=== PATIENT | female | born 1990 | race Hispanic/Latino ===

== ENCOUNTER 2021-01-01 04:18 | Inpatient (IN) | payer OTHER ==
[2021-01-01] MEDS ORDERED: BUTORPHANOL 1 MG/ML INJ IV PRN (04:35)
[2021-01-01] MEDS ORDERED: Ringers Lactate 1,000 ML IV PRN (04:35)
[2021-01-01] MEDS ORDERED: PROMETHAZINE INJ 25 MG/ML AMP IM PRN (04:35)
[2021-01-01] MEDS ORDERED: CARBOPROST TROME 250 MCG/ML IM PRN (04:35)
[2021-01-01] MEDS ORDERED: METHYLERGONOVINE 0.2MG/ML AMP IM PRN (04:35)
[2021-01-01] MEDS ORDERED: OXYTOCIN/LR 20 UNIT/1,000 ML BAG IV SCH ×2 (05:00→12:00)
[2021-01-01] MEDS ORDERED: Ringers Lactate 1,000 ML IV SCH (05:00)
[2021-01-01] MEDS ORDERED: OXYTOCIN 10 UNIT/ML ML IV ONE (05:40)
[2021-01-01 05:46] LABS: Absolute Lymphocytes (CBC) 3.1 K/uL (0.7-4.9); Basophils % 0.8 % (0-1.3); Hematocrit 30.4 % (36.0-45.0); MPV 7.9 fL (7.6-11.3); RBC Red Blood Cell Count 3.68 M/uL (3.86-4.86)
[2021-01-01 05:48] LABS: Urine Appearance CLEAR (Clear); Urine Bilirubin NEGATIVE (Negative); Urine Blood NEGATIVE (Negative); Urine Color YELLOW (Yellow); Urine Glucose NEGATIVE (Negative); Urine Protein TRACE (Negative); Urine Specific Gravity >=1.030 (1.005-1.030)
[2021-01-01 05:57] LABS: Urine Microscopic Reflex ORDER UMIC
[2021-01-01 06:11] LABS: Urine Bacteria 20-50 /HPF (<20); Urine RBC <5 /HPF (NONE SEEN)
[2021-01-01 06:12] VITALS: BMI 31.2
[2021-01-01] MEDS ORDERED: BUPIVACAINE 0.25% PF 10 ML VIAL IJ PRN (08:52)
[2021-01-01] MEDS ORDERED: ROPIVACAINE HCL 0.2% 20ML AMP EP ONE (08:52)
[2021-01-01] MEDS ORDERED: FENTANYL CITR 100 MCG/2 ML IV ONE (08:52)
[2021-01-01] MEDS ORDERED: ROPIVACAINE HCL 100 ML EP ONE (09:48)
[2021-01-01] MEDS ORDERED: LIDOCAINE 1% MPF 30 ML VIAL ONE (10:24)
[2021-01-01] MEDS ORDERED: BISACODYL 10 MG RECTAL SUPP PR PRN (11:07)
[2021-01-01] MEDS ORDERED: ACETAMINOPHEN 500 MG TAB PO PRN (11:07)
[2021-01-01] MEDS ORDERED: Oxycodone HCl/Acetaminophen 1 TAB TAB PO PRN ×2 (11:07)
[2021-01-01] MEDS ORDERED: DOCUSATE NA/SENNA CONC 1 TAB PO PRN (11:07)
[2021-01-01] MEDS ORDERED: IBUPROFEN 200 MG TAB PO PRN (11:07)
[2021-01-01] MEDS ORDERED: DIPHENHYDRAMINE 25 MG TAB/CAP PO PRN (11:07)
--- NOTE | 2021-01-01 15:41 | OP ---
Surgeon: Loco Brink MD Procedure In Detail: Camelia Desai is a 30-year-old, 3, para 2, 39 weeks 2 days, came in f or labor induction. Approximately 3 cm on admission. Rupture of membranes this morning, clear fluid . The patient received Stadol 1 mg IV, Phenergan 25 mg IM at approximately 4-5 cm requested and rece ived epidural anesthesia, which gave excellent effect during remainder of labor and delivery. Second stage of about 15 to 20 minutes. Spontaneous vaginal delivery of 6 pounds 11 ounces female, Apgars 9 and 10. No episiotomy. No lacerations. Baby had a harness type cord, not completely around the n linda and very loose. Estimated blood loss 200 mL or less. The patient is Rh positive. Immune to Rub jessica. COVID status pending. Strep was negative. Tolerated all procedures well. Final Diagnoses: Term intrauterine at 39 weeks and 2 days, labor induction, vaginal delive ry, epidural anesthesia. BORIS/FAB Voice ID: [id number] Report ID: [id number]
[2021-01-02 01:10] LABS: RPR (Rapid Plasma Reagin) NON-REACT (NON-REACT)
--- NOTE | 2021-01-02 07:51 | DS ---
Hospital Course: A 30-year-old 3, para 2, 39 weeks 2 days, delivered of 6 pounds 11 ounces f emale, Apgars 9 and 10. No episiotomy. No lacerations. Epidural anesthesia, which gave excellent b enefit. Schultze delivery of the placenta, which inspected and noted to be intact and normal, 200 cc or less blood loss. The patient is Rh positive, immune to Rubella. Negative strep screen. She has had her Tdap immunization. Does not want COVID or flu shots. She has no questions or problems this morning. Dismissed. Return to my office in 6 weeks for followup to report any temperature elevatio n of 100 degrees or greater, severe pain, heavy bleeding, or any other type of abnormalities. Had St adol 1 mg IV, Phenergan 25 mg IM prior to the epidural. No post epidural problems. Final Diagnoses: Term intrauterine at 39 weeks and 2 days, labor induction, vaginal delive ry, epidural anesthesia. Immunizations offered. BORIS/FAB Voice ID: [id number] Report ID: [id number]
[2021-01-02 14:36] VITALS: BP 117/76; TEMP 97.5
--- NOTE | 2021-01-02 15:07 | PREOPHP ---
Date of Admission: 01/01/2021 History Of Present Illness: This is a 29-year-old 3, para 2, at 30 for induction. This has been thoroughly discussed prior to admission. She is 39 weeks and 2 days. Family History: Noncontributory. Past Medical History: No serious medical illnesses. No STDs. Past Surgical History: Only surgery is breast augmentation. Allergies: NO ALLERGIES. Social History: No smoking. Medications: No medicines prior to admission other than vitamins. Physical Examination: HEENT: Clear. Pupils equal, round, reactive to light and accommodation. Conjunctivae well perfused. No oral, lingual, or buccal lesions. Chest and Lungs: Clear. Heart: Without murmurs, thrills, heaves, or rubs. Breasts: Without masses on previous visit. Abdomen: Term size. Extremities: Clear without edema, cyanosis, or clubbing. Assessment And Plan: The patient is 3.5 cm, 50% effaced, vertex well applied with contraction, rupture membranes, clear fluid, quite a bit of fluid. Baby still is ___high after the rupture of membranes, but applied to the cervix. Labor talk given. Anticipate more rapid progress once the baby comes down a little bit and she starts to dilate, probably will request epidural anesthesia, can have Stadol before that if she wishes. BORIS/FAB Voice ID: [id number]
[2021-01-04 03:54] LABS: HBsAG Nonreactive (Nonreactive)
== END 2021-01-02 14:00 | disposition home or self-care (01) | DRG 807 ==
LOC: 2ND-WC 04:18
PROVIDERS: ADMIT Specialist; ATTEND Specialist
PROC: 10E0XZZ Delivery of Products of Conception, External Approach (ICD-10-PCS; principal; 2021-01-01)
PROC: 3E033VJ Introduction of Other Hormone into Peripheral Vein, Percutaneous Approach (ICD-10-PCS; 2021-01-01)
DX: O80 Encounter for full-term uncomplicated delivery (principal); Z37.0 Single live birth; Z3A.39 39 weeks gestation of pregnancy; Z20.822 Contact with and (suspected) exposure to COVID-19
CPT/HCPCS: 36415; 81003; 81015; 85025; 86592; 86850; 86900; 86901; 87086; 87088; 87340; J0595; J2210; J2550; J2795; J3010; J7120; U0003

== ENCOUNTER 2022-04-15 09:58 | Inpatient (IN) | payer OTHER ==
--- OUTSIDE RECORDS SUMMARY | 2022-04-18 03:48 | XMS REPORT | Continuity of Care Document ---
:1990 Author Organization [facility] t Address [address] [place] [address] Care Team Providers Name Role Phone AMINATA LONDON Attending Clinician Unavailable Doctor Unassigned, [place] Attending Clinician Unavailable Problems This patient has no known problems. Allergies, Adverse Reactions, Alerts Allergy Allergy Status Severity Reaction(s) Onset Inactive Treating Comm ents Source Name Type Date Date Clinician NO KNOWN Drug Active [facility] ALLERGIE Class ity of [facility] Social History Social Habit Start Date Stop Date Quantity Comments Source Sex Assigned At [birth year] [facility] 00:00:00 00:00:00 [facility] Smoking Status Start Date Stop Date Source Unknown if ever smoked [facility] Medications This patient has no known medications. Procedures Procedure Date / Time Performed Performing Clinician [facility] e ASSIGNMENT OF BENEFITS 2020-06-25 14:21:53 Doctor Unassfariha, No [facility] Encounters Start End Encounter Admission Attending Care Care Encounter Source Date/Time Date/Time Type Type Clinicians Facility Department ID 2020-06-25 2020-06-25 Outpatient R LITA [facility] [id number] [facility] 09:45:00 09:45:00 AMINATA brink o f [facility] 2020-06-25 2020-06-25 Orders Doctor GOLDEN [id number] [facility] 00:00:00 00:00:00 Only Unassigned, LUCA [id number] ity of [place] [facility] [id number] [place] as [phone] [place] [id number] [address] Results This patient has no known results.
[2022-04-18] MEDS ORDERED: OXYTOCIN/LR 20 UNIT/1,000 ML BAG IV SCH ×2 (04:00→09:00)
[2022-04-18] MEDS ORDERED: CARBOPROST TROME 250 MCG/ML IM PRN (04:00)
[2022-04-18] MEDS ORDERED: PROMETHAZINE INJ 25 MG/ML AMP IM PRN (04:00)
[2022-04-18] MEDS ORDERED: Ringers Lactate 1,000 ML IV PRN (04:00)
[2022-04-18] MEDS ORDERED: METHYLERGONOVINE 0.2MG/ML AMP IM PRN (04:00)
[2022-04-18] MEDS ORDERED: Ringers Lactate 1,000 ML IV SCH (04:00)
[2022-04-18] MEDS ORDERED: MEPERIDINE HCL 25 MG/ML SYR IV PRN (04:00)
[2022-04-18] MEDS ORDERED: BUTORPHANOL 1 MG/ML INJ IV PRN (04:00)
[2022-04-18 04:53] VITALS: BMI 30.8
[2022-04-18 05:20] LABS: Absolute Lymphocytes (CBC) 3.5 K/uL (0.7-4.9); Hematocrit 32.5 % (36.0-45.0); Lymphocytes % 29.7 % (15.3-44.8); MCV 82.1 fL (80-100); MPV 7.8 fL (7.6-11.3); RBC Red Blood Cell Count 3.96 M/uL (3.86-4.86)
[2022-04-18 05:23] LABS: Specific Gravity 1.027 (1.005-1.030); Urine Bacteria <20 /HPF (<20); Urine Bilirubin NEGATIVE (Negative); Urine Blood Negative (Negative); Urine Clarity Clear (Clear); Urine Color Yellow (Yellow); Urine Glucose NEGATIVE (Negative); Urine Mucus 2+ /HPF (None Seen); Urine Protein TRACE (Negative); Urine RBC <5 /HPF (None Seen); Urine Urobilinogen Normal (Normal)
[2022-04-18 06:35] LABS: Hepatitis B surface AG Interp. Nonreactive (Nonreactive)
[2022-04-18] MEDS ORDERED: BUPIVACAINE 0.25% PF 10 ML VIAL IJ PRN (07:24)
[2022-04-18] MEDS ORDERED: FENTANYL CITR 100 MCG/2 ML IV ONE (07:24)
[2022-04-18] MEDS ORDERED: ROPIVACAINE HCL 0.2% 20ML AMP IV ONE (07:24)
[2022-04-18] MEDS ORDERED: ROPIVACAINE 0.2% (200 MG/100 ML) BAG EP ONE (07:25)
[2022-04-18] MEDS ORDERED: LIDOCAINE 1% MPF 30 ML VIAL ONE (07:35)
--- NOTE | 2022-04-18 07:42 | PREOPHP ---
Date of Admission: 04/18/2022 History Of Present Illness: A 31-year-old, 4, para 3, at 39 weeks and 3 days, followed antep artum without complications, for induction this morning. Family History: Noncontributory. Past Medical History: The patient has had breast surgery in 2015, augmentation. Allergies: NO ALLERGIES. Medications: vitamins prior to admission. Social History: Does not smoke. Physical Examination: HEENT: Clear. Pupils equal, round, reactive to light and accommodation. Conjunctivae well perfused . No oral, lingual, or buccal lesions. Chest and Lungs: Clear. Heart: Without murmurs, thrills, heaves, or rubs. Breasts: Without masses on previous visits. Abdomen: Term size. Extremities: Clear without edema, cyanosis, or clubbing. Assessment And Plan: The patient is 3.5 cm, 60% effaced, vertex, well applied. Rupture of membranes , clear fluid. Vital signs all normal. Baby looks good on the monitor. The patient will probably b e requesting epidural anesthesia. Full labor talk given. Anticipate delivery sometime later today. BORIS/FAB Voice ID: [id number]
[2022-04-18] MEDS ORDERED: IBUPROFEN 600 MG TAB PO PRN (08:55)
[2022-04-18] MEDS ORDERED: Oxycodone HCl/Acetaminophen 1 TAB TAB PO PRN ×2 (08:55)
[2022-04-18] MEDS ORDERED: DOCUSATE NA/SENNA CONC 1 TAB PO PRN (08:55)
[2022-04-18] MEDS ORDERED: BISACODYL 10 MG RECTAL SUPP RC PRN (08:55)
[2022-04-18] MEDS ORDERED: DIPHENHYDRAMINE 25 MG TAB/CAP PO PRN (08:55)
[2022-04-18] MEDS ORDERED: ACETAMINOPHEN 500 MG TAB PO PRN (08:55)
[2022-04-18 20:21] LABS: RPR (Rapid Plasma Reagin) NON-REACT (NON-REACT)
--- NOTE | 2022-04-19 07:35 | DS ---
31-year-old 4, para 3, 39 weeks 3 days, delivered of a 7 pounds 8 ounce male , Apgars 9 and 9. No episiotomy. No laceration. Very short second stage of 15 minutes or less. Rh positive, immune to Rubella. Negative beta strep screen. : Afebrile, ambulating, voiding. Lochia is normal. No problems reported. Her blood loss at the time of delivery was less than 200 cc. She requests no analgesics on dismissal. Tdap has been offered again as it was during the . S he is to call my office Thursday and we will probably see her in 2 weeks or so depending upon the situa tion at my office. Final Diagnoses: Term intrauterine 39 weeks and 3 days. Vaginal delivery. Epidural anest hesia. BORIS/FAB Voice ID: [id number] Report ID: [id number]
[2022-04-19 08:54] VITALS: BP 113/72; TEMP 96.8
--- NOTE | 2022-04-21 08:03 | OP ---
Surgeon: Loco Brink MD A 31-year-old 4, para 3, 39 weeks 3 days for induction. Rh positive, immune to rubella, nega tive strep, 3.5 cm on admission, donte regularly. FHTs normal, reactive. Rupture of membranes , clear fluid. The patient went very rapidly thereafter at approximately 4.5 cm, requested and recei anum epidural anesthesia. Second stage was about 15 minutes. Spontaneous vaginal delivery of a 7-marquez nd 8-ounce male , Apgars 9 and 9. Loose nuchal cord x1. No episiotomy. No laceration. Schul tze delivery of the placenta, was inspected and noted to be intact and normal. Heavily calcified, bu t otherwise normal. Estimated blood loss, less than 200 cc. The patient tolerated all procedures we ll. Final Diagnoses: Term intrauterine . Labor induction. Vaginal delivery. Epidural anesthe liza. BORIS/FAB Voice ID: [id number] Report ID: [id number]
== END 2022-04-19 11:00 | disposition home or self-care (01) | DRG 807 ==
LOC: 2ND-WC 04-18 03:44
PROVIDERS: ADMIT Specialist; ATTEND Specialist
PROC: 10E0XZZ Delivery of Products of Conception, External Approach (ICD-10-PCS; principal; 2022-04-18)
PROC: 10907ZC Drainage of Amniotic Fluid, Therapeutic from Products of Conception, Via Natural or Artificial Opening (ICD-10-PCS; 2022-04-18)
PROC: 3E033VJ Introduction of Other Hormone into Peripheral Vein, Percutaneous Approach (ICD-10-PCS; 2022-04-18)
DX: O80 Encounter for full-term uncomplicated delivery (principal); Z37.0 Single live birth; Z3A.39 39 weeks gestation of pregnancy
CPT/HCPCS: 36415; 81001; 85025; 86592; 86901; 87340; J2001; J2210; J2590; J2795; J3010; J7120